=== PATIENT | male | born 1980 | race Caucasian/White ===

== ENCOUNTER 2019-03-25 13:40 | Inpatient (IN) | payer BC ==
[2019-03-25 14:16] LABS: Basophils # (A) 0.1 k/uL (0-0.2); Basophils % (A) 1 %; Eosinophils # (A) 0.2 k/uL (0-0.7); Eosinophils % (A) 1 %; HCT 47.2 % (39.0-53.0); HGB 16.5 gm/dL (13.0-17.5); Lymphocytes # (A) 1.7 k/uL (1.0-4.8); Lymphocytes % (A) 9 %; MCH 31.1 pg (25.0-35.0); MCHC 34.9 g/dL (31.0-37.0); MCV 89.2 fL (80.0-100.0); Monocytes # (A) 0.6 k/uL (0-1.0); Monocytes % (A) 3 %; Neutrophils # (A) 16.3 k/uL (1.3-7.7); Neutrophils % (A) 85 %; Platelet Count 240 k/uL (150-450); RBC 5.29 m/uL (4.30-5.90); RDW 13.9 % (11.5-15.5); WBC 19.2 k/uL (3.8-10.6)
[2019-03-25 14:23] LABS: Partial Thromboplastin Time 26.3 sec (22.0-30.0); Prothrombin Time 10.9 sec (9.0-12.0)
[2019-03-25 14:24] LABS: ALT 42 U/L (21-72); AST 24 U/L (17-59); African American GFR (CKD) >90 (>60 ml/min/1.73 sqM); Albumin 4.6 g/dL (3.5-5.0); Alkaline Phosphatase 68 U/L (38-126); Anion Gap 14 mmol/L; Blood Urea Nitrogen 15 mg/dL (9-20); Calcium 9.8 mg/dL (8.4-10.2); Carbon Dioxide 21 mmol/L (22-30); Chloride 105 mmol/L (98-107); Glucose 116 mg/dL (74-99); Potassium 4.1 mmol/L (3.5-5.1); Sodium 140 mmol/L (137-145); Total Protein 8.4 g/dL (6.3-8.2)
[2019-03-25] MEDS ORDERED: SODIUM CHLORIDE 0.9% 1,000 ML IV STA (14:27)
--- NOTE | 2019-03-25 14:34 | ED ---
General Adult HPI - General Chief complaint: Abdominal Pain Stated complaint: Abd Pain Time Seen by Provider: 03/25/19 14:00 Source: patient Mode of arrival: ambulatory Limitations: no limitations - History of Present Illness Initial comments: Dictation was produced using [employer] dictation software. please excuse any grammatical, word or spelling errors. Chief Complaint: 38-year-old male presents with abdominal pain since yesterday. History of Present Illness: 38-year-old male presents today with abdominal pain. Patient states his symptoms have been worsening since yesterday and however since coming to the emergency department his symptoms have abated slightly. Patient state he had a similar episode like this several months ago however has not had it evaluated by a medical personnel. Patient states he has fever and chills. Hasn't had a bowel movement since yesterday. She does complain some mild nausea. He localizes his pain to his left lower quadrant radiates diffusely to his abdomen. No radiation to the back. Patient has no history of diverticulitis. The ROS documented in this emergency department record has been reviewed and confirmed by me. Those systems with pertinent positive or negative responses have been documented in the HPI. All other systems are other negative and/or noncontributory. PHYSICAL EXAM: General Impression: Alert and oriented x3, not in acute distress HEENT: Normocephalic atraumatic, extra-ocular movements intact, pupils equal and reactive to light bilaterally, mucous membranes moist. Cardiovascular: Heart regular rate and rhythm, S1&S2 audible, no murmurs, rubs or gallops Chest: Lungs clear to auscultation bilaterally, no rhonchi, no wheeze, no rales Abdomen: Diffuse abdominal tenderness, worse in the left lower quadrant Musculoskeletal: Pulses present and equal in all extremities, no peripheral edema Motor: no focal deficits noted Neurological: CN II-XII grossly intact, no focal motor or sensory deficits noted Skin: Intact with no visualized rashes Psych: Normal affect and mood ED course: 38-year-old male with chief complaint of abdominal pain. Vital signs upon arrival are within acceptable limits. Abdomen evaluation obtained. Patient is lucid is 19.2, coag panel unremarkable. Metabolic panel is grossly unremarkable. Computed tomography scan of the abdomen pelvis was obtained showing findings of diverticulitis with scattered pneumoperitoneum. Received call from radiology discussing aneurysm cells. Patient clinical case was discussed with Dr. Dwyer who is willing to accept patients care. Patient started on Zosyn. Reason for operative intervention at this time. - Related Data Home Medications Medication Instructions Recorded Confirmed No Known Home Medications 03/25/19 03/25/19 Allergies Allergy/AdvReac Type Severity Reaction Status Date / Time No Known Allergies Allergy Verified 03/25/19 14:19 Review of Systems ROS Statement: Those systems with pertinent positive or pertinent negative responses have been documented in the HPI. ROS Other: All systems not noted in ROS Statement are negative. Past Medical History Past Medical History: No Reported History History of Any Multi-Drug Resistant Organisms: None Reported Past Surgical History: No Surgical Hx Reported Past Psychological History: Depression Smoking Status: Current every day smoker Past Alcohol Use History: None Reported Past Drug Use History: Marijuana General Exam Limitations: no limitations Course Vital Signs 03/25/19 13:48 Temperature 98.7 F Pulse Rate 93 Respiratory 24 Rate Blood Pressure 148/94 O2 Sat by Pulse 98 Oximetry Medical Decision Making - Lab Data Result diagrams: 03/25/19 14:06 03/25/19 14:06 Lab Results 03/25/19 03/25/19 03/25/19 Range/Units 14:06 14:06 14:06 WBC 19.2 H (3.8-10.6) k/uL RBC 5.29 (4.30-5.90) m/uL Hgb 16.5 (13.0-17.5) gm/dL Hct 47.2 (39.0-53.0) % MCV 89.2 (80.0-100.0) fL MCH 31.1 (25.0-35.0) pg MCHC 34.9 (31.0-37.0) g/dL RDW 13.9 (11.5-15.5) % Plt Count 240 (150-450) k/uL Neutrophils % 85 % Lymphocytes % 9 % Monocytes % 3 % Eosinophils % 1 % Basophils % 1 % Neutrophils # 16.3 H (1.3-7.7) k/uL Lymphocytes # 1.7 (1.0-4.8) k/uL Monocytes # 0.6 (0-1.0) k/uL Eosinophils # 0.2 (0-0.7) k/uL Basophils # 0.1 (0-0.2) k/uL PT 10.9 (9.0-12.0) sec INR 1.0 (<1.2) APTT 26.3 (22.0-30.0) sec Sodium 140 (137-145) mmol/L Potassium 4.1 (3.5-5.1) mmol/L Chloride 105 (98-107) mmol/L Carbon Dioxide 21 L (22-30) mmol/L Anion Gap 14 mmol/L BUN 15 (9-20) mg/dL Creatinine 0.91 (0.66-1.25) mg/dL Est GFR (CKD-EPI)AfAm >90 (>60 ml/min/1.73 sqM) Est GFR (CKD-EPI)NonAf >90 (>60 ml/min/1.73 sqM) Glucose 116 H (74-99) mg/dL Calcium 9.8 (8.4-10.2) mg/dL Total Bilirubin 2.0 H (0.2-1.3) mg/dL AST 24 (17-59) U/L ALT 42 (21-72) U/L Alkaline Phosphatase 68 (38-126) U/L Total Protein 8.4 H (6.3-8.2) g/dL Albumin 4.6 (3.5-5.0) g/dL Lipase 73 (23-300) U/L Disposition Clinical Impression: Diverticulitis Disposition: ADMITTED IP TO THIS [facility] Condition: Fair Referrals: None,Stated [Primary Care Provider] - 1-2 days Decision Time: 15:14
[2019-03-25] MEDS ORDERED: PIPERACILLIN-TAZOBACTAM 3.375 GM in SODIUM CHLORIDE 0.9% 100 ML IVPB STA (15:05)
--- NOTE | 2019-03-25 15:10 | CT ---
EXAMINATION TYPE: CT abdomen pelvis w con DATE OF EXAM: 03/25/2019 COMPARISON: None INDICATION: Pelvic pain with nausea and vomiting. DLP: 2322 mGycm, Automated exposure control for dose reduction was used. CONTRAST: 100 mL of Isovue 300. Study performed without Oral Contrast TECHNIQUE: Axial images were obtained from above the diaphragm to the pubic rami in the axial plane a t 5 mm thick sections. Reconstructed images are reviewed on the computer in the coronal plane. FINDINGS: Small amount of free air is present scattered within the mesentery. This is greatest in the epigastric region. Limited CT sections are obtained the lung bases. The lung bases are clear. CT ABDOMEN: Liver: Normal Spleen: Normal Pancreas: Normal Adrenal glands: The adrenal glands are normal. Gallbladder: Normal Kidneys: No masses are evident. No hydronephrosis is present. No cysts are present. Delayed images were obtained through the kidneys, which remain unremarkable. Aorta: Vascular calcification is within the aorta. Inferior vena cava: Normal. CT PELVIS: There is thickening of the descending colon sigmoid colon junction. Inflammatory changes are adjacent . There are scattered diverticuli within the descending colon and sigmoid colon. Findings are compati ble with acute diverticulitis. No abscess formation is evident. Note is made of additional scattered diverticuli within the ascending colon region. Appendix: Normal as visualized. Urinary bladder: Normal. Genitourinary structures: Prostate appears normal Osseous structures: No suspicious lytic or sclerotic lesions. IMPRESSIONS: 1. Acute diverticulitis descending colon sigmoid colon junction. 2. Pneumoperitoneum with scattered small amounts of air discussed above. 3. Report was called to Dr. Fontanez by Dr. Verma by telephone at the time of interpretation [phone] ho urs 03/25/2019.
[2019-03-25] MEDS ORDERED: NALOXONE 0.4 MG/ML 1 ML VIAL IV PRN (15:12)
[2019-03-25] MEDS ORDERED: MORPHINE SULFATE 4 MG/ML SYRINGE IV PRN (15:12)
--- NOTE | 2019-03-25 15:37 | P.GSHP ---
History of Present Illness H&P Date: 03/25/19 CHIEF COMPLAINT: Diverticulitis HISTORY OF PRESENT ILLNESS: The patient is a 38 year old male who comes in with less than 24-hour history of left lower quadrant abdominal pain. Reports prior attacks several times this year however today being the worst pain. No prior reports of diarrhea and constipation. His bowels are regular. No prior colonoscopies. Reports eating popcorn including sunflower seeds. He does report a family history of diverticulitis in his grandmother. No reports of blood in stools however. No fevers or chills. Computed of the abdomen and pelvis demonstrates diverticulitis PAST MEDICAL HISTORY: See list. PAST SURGICAL HISTORY: See list. MEDICATIONS: See list. ALLERGIES: See list. SOCIAL HISTORY: See list. REVIEW OF ORGAN SYSTEMS: CONSTITUTIONAL: No fevers or chills. No recent weight loss. EYES: Denies any trouble with vision. No glasses. HEENT: No difficulties with hearing. No nosebleeds. No difficulty swallowing. RESPIRATORY: Denies pneumonia. Denies any troubles with breathing or dyspnea on exertion. CARDIOVASCULAR: Denies any chest pain, palpitations, or recent heart attacks. GASTROINTESTINAL: Denies fatty food intolerance. Denies change in bowel habits. Has occasional gas bloat GENITOURINARY: Denies any blood in urine or increased urinary frequency. NEUROLOGICAL: Denies any numbness or tingling along the distal extremities. No seizure disorders or headaches. MUSCULOSKELETAL: occasional back pain, stiffness or joint arthritis. SKIN: No current skin cancer. No rash. PSYCHIATRIC: Denies current depression or suicidal thoughts. ENDOCRINE: Denies current thyroid disorders. Denies any blood sugar glucose intolerance. HEME/LYMPHATIC: Denies any lumps and bumps around the neck. No recent deep venous thrombosis. ALLERGY/IMMUNOLOGY: No immunoglobulin therapy. No immune deficiencies. BREAST: Denies current breast lumps, pain or nipple discharge. PHYSICAL EXAM: VITALS: Reviewed CONSTITUTIONAL: Well developed and in no acute distress. EYES: Conjuctivae without sclera icterus. Pupils are equally round and reactive to light. Extraocular movements grossly intact. HEAD, EARS, NOSE, THROAT: Moist buccal mucosa. Head is atraumatic, normocephalic. Hears conversational speech. No nasal drainage. Good dentition. NECK: Supple. No JV distention. No thyroidomegaly. RESPIRATORY: Non-labored respirations and equal bilateral excursions. No gross wheezes. CARDIOVASCULAR: Regular rate and rhythm. Extremities without moderate edema. Palpable 2+ radial pulses. ABDOMEN: Soft. no peritonitis on exam. Mild left lower quadrant tenderness. LYMPH: No neck lymphadenopathy. No axillary lymphadenopathy. MUSCULOSKELETAL: Nail and fingers with good capillary refill. SKIN: Warm and well perfused with good skin turgor. NEUROLOGIC: Cranial nerves I through XII grossly intact. Sensation upper and extremities intact. No focal or lateralizing signs. PSYCH: Appropriate affect. Alert and oriented to person, place and time. Displays appropriate insight. CLINCAL LABS: Reviewed. WBC over 19,000. Total Bilirubin Elevated at 2.0 IMAGING: Independently reviewed with localized perforation left lower quadrant. No large pneumoperitoneum identified. No small bowel obstruction identified. ASSESSMENT: 1. Localized perforated sigmoid diverticulitis PLAN: 1. IV antibiotics for localized perforated diverticulitis 2. May have ice chips and popsicles. 3. Inpatient hospitalization over 2 nights 4. DVT prophylaxis 5. Incentive spirometer 6. Ambulation 4 times a day Past Medical History Past Medical History: No Reported History History of Any Multi-Drug Resistant Organisms: None Reported Past Surgical History: No Surgical Hx Reported Past Psychological History: Depression Smoking Status: Current every day smoker Past Alcohol Use History: None Reported Past Drug Use History: Marijuana Medications and Allergies Home Medications Medication Instructions Recorded Confirmed Type No Known Home Medications 03/25/19 03/25/19 History Allergies Allergy/AdvReac Type Severity Reaction Status Date / Time No Known Allergies Allergy Verified 03/25/19 14:19 Surgical - Exam Vital Signs Temp Pulse Resp BP Pulse Ox 98.7 F 93 24 148/94 98 03/25/19 13:48 03/25/19 13:48 03/25/19 13:48 03/25/19 13:48 03/25/19 13:48 Results - Labs 03/25/19 14:06 03/25/19 14:06 Abnormal Lab Results - Last 24 Hours (Table) 03/25/19 03/25/19 Range/Units 14:06 14:06 WBC 19.2 H (3.8-10.6) k/uL Neutrophils # 16.3 H (1.3-7.7) k/uL Carbon Dioxide 21 L (22-30) mmol/L Glucose 116 H (74-99) mg/dL Total Bilirubin 2.0 H (0.2-1.3) mg/dL Total Protein 8.4 H (6.3-8.2) g/dL Diabetes panel 03/25/19 Range/Units 14:06 Sodium 140 (137-145) mmol/L Potassium 4.1 (3.5-5.1) mmol/L Chloride 105 (98-107) mmol/L Carbon Dioxide 21 L (22-30) mmol/L BUN 15 (9-20) mg/dL Creatinine 0.91 (0.66-1.25) mg/dL Glucose 116 H (74-99) mg/dL Calcium 9.8 (8.4-10.2) mg/dL AST 24 (17-59) U/L ALT 42 (21-72) U/L Alkaline Phosphatase 68 (38-126) U/L Total Protein 8.4 H (6.3-8.2) g/dL Albumin 4.6 (3.5-5.0) g/dL Calcium panel 03/25/19 Range/Units 14:06 Calcium 9.8 (8.4-10.2) mg/dL Albumin 4.6 (3.5-5.0) g/dL Pituitary panel 03/25/19 Range/Units 14:06 Sodium 140 (137-145) mmol/L Potassium 4.1 (3.5-5.1) mmol/L Chloride 105 (98-107) mmol/L Carbon Dioxide 21 L (22-30) mmol/L BUN 15 (9-20) mg/dL Creatinine 0.91 (0.66-1.25) mg/dL Glucose 116 H (74-99) mg/dL Calcium 9.8 (8.4-10.2) mg/dL Adrenal panel 03/25/19 Range/Units 14:06 Sodium 140 (137-145) mmol/L Potassium 4.1 (3.5-5.1) mmol/L Chloride 105 (98-107) mmol/L Carbon Dioxide 21 L (22-30) mmol/L BUN 15 (9-20) mg/dL Creatinine 0.91 (0.66-1.25) mg/dL Glucose 116 H (74-99) mg/dL Calcium 9.8 (8.4-10.2) mg/dL Total Bilirubin 2.0 H (0.2-1.3) mg/dL AST 24 (17-59) U/L ALT 42 (21-72) U/L Alkaline Phosphatase 68 (38-126) U/L Total Protein 8.4 H (6.3-8.2) g/dL Albumin 4.6 (3.5-5.0) g/dL Assessment and Plan (1) Perforation of sigmoid colon due to diverticulitis Current Visit: Yes Status: Acute Code(s): K57.20 - DVTRCLI OF LG INT W PERFORATION AND ABSCESS W/O BLEEDING SNOMED Code(s): 2814223761905583 (2) Obesity (BMI 30.0-34.9) Current Visit: Yes Status: Acute Code(s): E66.9 - OBESITY, UNSPECIFIED SNOMED Code(s): 620908484937159
[2019-03-25] MEDS: ACETAMINOPHEN TAB 325 MG TAB PO PRN (15:46)
[2019-03-25] MEDS: SODIUM CHLORIDE 0.9% 1,000 ML IV SCH ×2 (15:46→23:33)
[2019-03-25] MEDS: D5-0.45% NACL WITH KCL 20MEQ/L 1,000 ML IV SCH ×2 (16:45→23:41)
[2019-03-25 17:02] LABS: Appearance,Urine Clear (Clear); Bilirubin,Urine Negative (Negative); Blood,Urine Trace (Negative); Color,Urine Yellow; Glucose,Urine (UA) Negative (Negative); Ketones,Urine 2+ (Negative); Leukocyte Esterase,Urine Negative (Negative); Mucus,Urine Rare /hpf; Nitrite,Urine Negative (Negative); PH, Urine 7.5 (5.0-8.0); Protein,Urine 1+ (Negative); RBC,Urine 14 /hpf (0-5)
[2019-03-25 17:08] LABS: Specific Gravity,Urine >1.050 (1.001-1.035)
[2019-03-25] MEDS ORDERED: KETOROLAC 30 MG/ML 1 ML VIAL IVP STA (20:57)
[2019-03-25] MEDS: metroNIDAZOLE-NS PMX 500 MG in SALINE 1 100ML.BAG IVPB SCH (21:18)
[2019-03-25] MEDS: ACETAMINOPHEN IV (For NPO) 1,000 MG in EMPTY BAG 1 BAG IVPB SCH (21:51)
[2019-03-25] MEDS: PIPERACILLIN-TAZOBACTAM 3.375 GM in SODIUM CHLORIDE 0.9% 100 ML IVPB SCH (23:32)
[2019-03-26] MEDS: KETOROLAC 30 MG/ML 1 ML VIAL IVP SCH ×4 (03:04→21:59)
[2019-03-26] MEDS: ACETAMINOPHEN IV (For NPO) 1,000 MG in EMPTY BAG 1 BAG IVPB SCH ×3 (03:47→17:21)
[2019-03-26] MEDS: metroNIDAZOLE-NS PMX 500 MG in SALINE 1 100ML.BAG IVPB SCH ×3 (04:43→22:00)
[2019-03-26] MEDS: D5-0.45% NACL WITH KCL 20MEQ/L 1,000 ML IV SCH ×4 (04:45→23:55)
[2019-03-26 07:17] LABS: Basophils % (A) 0 %; Eosinophils # (A) 0.1 k/uL (0-0.7); Eosinophils % (A) 0 %; HCT 46.1 % (39.0-53.0); HGB 15.3 gm/dL (13.0-17.5); Lymphocytes # (A) 1.7 k/uL (1.0-4.8); Lymphocytes % (A) 8 %; MCH 30.6 pg (25.0-35.0); MCHC 33.1 g/dL (31.0-37.0); MCV 92.5 fL (80.0-100.0); Mean Platelet Volume 6.3; Monocytes # (A) 0.6 k/uL (0-1.0); Monocytes % (A) 3 %; Neutrophils # (A) 17.7 k/uL (1.3-7.7); Neutrophils % (A) 87 %; Platelet Count 206 k/uL (150-450); RBC 4.98 m/uL (4.30-5.90); RDW 13.9 % (11.5-15.5); WBC 20.2 k/uL (3.8-10.6)
[2019-03-26] MEDS: PIPERACILLIN-TAZOBACTAM 3.375 GM in SODIUM CHLORIDE 0.9% 100 ML IVPB SCH ×3 (08:57→23:35)
[2019-03-26] MEDS: PANTOPRAZOLE 40 MG/10 ML VIAL IV SCH (08:57)
[2019-03-26] MEDS: ENOXAPARIN 30 MG/0.3 ML SYRINGE SQ SCH (08:57)
[2019-03-26] MEDS: SODIUM CHLORIDE 0.9% 1,000 ML IV SCH ×3 (09:08→23:40)
[2019-03-26 11:10] LABS: ALT 33 U/L (21-72); AST 20 U/L (17-59); African American GFR (CKD) >90 (>60 ml/min/1.73 sqM); Alkaline Phosphatase 63 U/L (38-126); Anion Gap 12 mmol/L; Blood Urea Nitrogen 16 mg/dL (9-20); Calcium 9.1 mg/dL (8.4-10.2); Carbon Dioxide 20 mmol/L (22-30); Chloride 108 mmol/L (98-107); Glucose 119 mg/dL (74-99); Sodium 140 mmol/L (137-145); Total Bilirubin 1.5 mg/dL (0.2-1.3); Total Protein 7.3 g/dL (6.3-8.2)
[2019-03-26] MEDS: ONDANSETRON 4 MG/2 ML VIAL IVP PRN (11:48)
[2019-03-26] MEDS ORDERED: metroNIDAZOLE-NS PMX 500 MG in SALINE 1 100ML.BAG IVPB SCH (12:00)
--- NOTE | 2019-03-26 13:41 | P.PN ---
<Linh Siegel Roman - Last Filed: 03/26/19 13:22> Subjective Progress Note Date: 03/26/19 CHIEF COMPLAINT: Diverticulitis HISTORY OF PRESENT ILLNESS: Patient examined at the bedside this morning with Dr. Swan. Patient continues to complain of abdominal pain this morning but states it is improved from yesterday. Denies nausea or vomiting. WBC 20.2 this morning. Patient febrile overnight with a temp of 102.2. Temp 99.6 this morning. PHYSICAL EXAM: VITAL SIGNS: Currently stable. GENERAL: Well-developed in no acute distress. HEENT: No sclera icterus. Extraocular movements grossly intact. Moist buccal mucosa. Head is atraumatic, normocephalic. Hears conversational speech. No nasal drainage. NECK: Supple without lymphadenopathy. CHEST: Non-labored respirations and equal bilateral excursions. CARDIOVASCULAR: Regular rate with regular rhythm. Palpable 2+ radial pulses. ABDOMEN: Soft. Nondistended. Tenderness upon palpation of left lower quadrant. No peritoneal signs. MUSCULOSKELETAL: No clubbing, cyanosis or edema. NEUROLOGIC: No focal or lateralizing signs. Cranial nerves II through XII grossly intact. PSYCH: Appropriate affect. Alert and oriented to person, place and time. SKIN: Well perfused. Good skin turgor. ASSESSMENT: 1. Localized perforated sigmoid diverticulitis PLAN: 1. NPO except for ice chips and popsicles 2. Continue antibiotics. Monitor WBC. Infectious disease consulted this morning for evaluation 3. Incentive spirometer 4. Activity as tolerated 5. Continue with conservative management at this time Nurse practitioner note has been reviewed by physician. Signing provider agrees with the documented findings, assessment, and plan of care. Objective - Vital Signs Vital signs: Vital Signs Temp 99.6 F 03/26/19 07:00 Pulse 59 L 03/26/19 07:00 Resp 17 03/26/19 07:00 BP 159/94 03/26/19 07:00 Pulse Ox 98 03/26/19 07:00 Intake & Output 03/25/19 03/26/19 03/26/19 18:59 06:59 18:59 Weight 117.934 kg Other: Voiding Method Toilet - Labs CBC & Chem 7: 03/26/19 06:54 03/26/19 06:54 Labs: Abnormal Lab Results - Last 24 Hours (Table) 03/25/19 03/25/19 03/25/19 Range/Units 14:03 14:06 14:06 WBC 19.2 H (3.8-10.6) k/uL Neutrophils # 16.3 H (1.3-7.7) k/uL Chloride (98-107) mmol/L Carbon Dioxide 21 L (22-30) mmol/L Glucose 116 H (74-99) mg/dL Total Bilirubin 2.0 H (0.2-1.3) mg/dL Total Protein 8.4 H (6.3-8.2) g/dL Ur Specific [place] >1.050 H (1.001-1.035) Urine Protein 1+ H (Negative) Urine Ketones 2+ H (Negative) Urine Blood Trace H (Negative) Urine RBC 14 H (0-5) /hpf Urine Mucus Rare H (None) /hpf 03/26/19 03/26/19 Range/Units 06:54 06:54 WBC 20.2 H (3.8-10.6) k/uL Neutrophils # 17.7 H (1.3-7.7) k/uL Chloride 108 H (98-107) mmol/L Carbon Dioxide 20 L (22-30) mmol/L Glucose 119 H (74-99) mg/dL Total Bilirubin 1.5 H (0.2-1.3) mg/dL Total Protein (6.3-8.2) g/dL Ur Specific [place] (1.001-1.035) Urine Protein (Negative) Urine Ketones (Negative) Urine Blood (Negative) Urine RBC (0-5) /hpf Urine Mucus (None) /hpf Assessment and Plan (1) Diverticulitis Current Visit: Yes Status: Acute Code(s): K57.92 - DVTRCLI OF INTEST, PART UNSP, W/O PERF OR ABSCESS W/O BLEED SNOMED Code(s): 496598954 (2) Perforation of sigmoid colon due to diverticulitis Current Visit: Yes Status: Acute Code(s): K57.20 - DVTRCLI OF LG INT W PERFORATION AND ABSCESS W/O BLEEDING SNOMED Code(s): 8272288222019300 <Amber Swan N - Last Filed: 03/26/19 23:43> Subjective Clinically, he reports feeling better. WBC persistently elevated. Recommend IV antibiotics for complicated diverticulitis and infectious disease consultation. Objective - Vital Signs Vital signs: Vital Signs Temp 99.4 F 03/26/19 19:36 Pulse 76 03/26/19 19:36 Resp 18 03/26/19 19:36 BP 122/72 03/26/19 19:36 Pulse Ox 95 03/26/19 19:36 Intake & Output 03/26/19 03/26/19 03/27/19 06:59 18:59 06:59 Intake Total 200 Balance 200 Weight 117.934 kg Intake: Oral 200 Other: Voiding Method Toilet Toilet Toilet # Voids 4 # Bowel Movements 3 - Labs CBC & Chem 7: 03/26/19 06:54 03/26/19 06:54 Labs: Abnormal Lab Results - Last 24 Hours (Table) 03/26/19 03/26/19 Range/Units 06:54 06:54 WBC 20.2 H (3.8-10.6) k/uL Neutrophils # 17.7 H (1.3-7.7) k/uL Chloride 108 H (98-107) mmol/L Carbon Dioxide 20 L (22-30) mmol/L Glucose 119 H (74-99) mg/dL Total Bilirubin 1.5 H (0.2-1.3) mg/dL Assessment and Plan (1) Perforation of sigmoid colon due to diverticulitis Current Visit: Yes Status: Acute Code(s): K57.20 - DVTRCLI OF LG INT W PERFORATION AND ABSCESS W/O BLEEDING SNOMED Code(s): 2554795926693031 (2) Obesity (BMI 30.0-34.9) Current Visit: Yes Status: Acute Code(s): E66.9 - OBESITY, UNSPECIFIED SNOMED Code(s): 126952939722972
[2019-03-26 15:33] VITALS: BMI 33.3
[2019-03-26] MEDS ORDERED: ACETAMINOPHEN IV (For NPO) 1,000 MG in EMPTY BAG 1 BAG IVPB SCH (21:00)
[2019-03-26] MEDS: ACETAMINOPHEN TAB 325 MG TAB PO PRN (22:00)
[2019-03-27] MEDS: KETOROLAC 30 MG/ML 1 ML VIAL IVP SCH ×4 (03:40→20:29)
[2019-03-27] MEDS: metroNIDAZOLE-NS PMX 500 MG in SALINE 1 100ML.BAG IVPB SCH ×4 (03:40→20:30)
[2019-03-27] MEDS: PANTOPRAZOLE 40 MG/10 ML VIAL IV SCH (08:38)
[2019-03-27] MEDS: D5-0.45% NACL WITH KCL 20MEQ/L 1,000 ML IV SCH ×3 (08:39→20:30)
[2019-03-27] MEDS: ENOXAPARIN 30 MG/0.3 ML SYRINGE SQ SCH (08:39)
[2019-03-27] MEDS: PIPERACILLIN-TAZOBACTAM 3.375 GM in SODIUM CHLORIDE 0.9% 100 ML IVPB SCH ×3 (08:40→23:03)
[2019-03-27 09:30] LABS: Basophils # (A) 0.1 k/uL (0-0.2); Basophils % (A) 0 %; Eosinophils # (A) 0.2 k/uL (0-0.7); Eosinophils % (A) 1 %; HCT 44.5 % (39.0-53.0); HGB 14.3 gm/dL (13.0-17.5); Lymphocytes # (A) 1.8 k/uL (1.0-4.8); Lymphocytes % (A) 10 %; MCH 30.1 pg (25.0-35.0); MCHC 32.1 g/dL (31.0-37.0); MCV 93.7 fL (80.0-100.0); Mean Platelet Volume 7.2; Monocytes # (A) 0.7 k/uL (0-1.0); Monocytes % (A) 4 %; Neutrophils # (A) 14.8 k/uL (1.3-7.7); Neutrophils % (A) 84 %; Platelet Count 212 k/uL (150-450); RBC 4.74 m/uL (4.30-5.90); RDW 13.9 % (11.5-15.5); WBC 17.7 k/uL (3.8-10.6)
[2019-03-27] MEDS: ACETAMINOPHEN TAB 325 MG TAB PO PRN (16:18)
--- NOTE | 2019-03-27 20:43 | P.PN ---
Progress Note - Text Progress Note Date: 03/27/19 He has new onset acute pain. He has new fevers. Will repeat CT scan. Possibility of exploratory laparotomy described.
--- NOTE | 2019-03-27 21:31 | CT ---
EXAMINATION TYPE: CT abdomen pelvis w con DATE OF EXAM: 03/27/2019 COMPARISON: 03/17/2019 HISTORY: Abdominal pain. CT DLP: 2576.4 mGycm Automated exposure control for dose reduction was used. TECHNIQUE: Helical acquisition of images was performed from the lung bases through the pelvis. CONTRAST: Performed without Oral Contrast and with IV Contrast, patient injected with 100ml mL of Isovue 300. FINDINGS: Lung bases are clear. There is no pleural effusion. Heart size is normal. There is no pericardial eff usion. Liver spleen stomach pancreas appear normal. Bile ducts are not dilated. Gallbladder appears normal. There is no adrenal mass. Kidneys show satisfactory contrast opacification. There is a 3 mm calculus interpolar left kidney. Ureters are not dilated. There is normal excretion on the delayed images by b oth kidneys. There is no retroperitoneal adenopathy. There is extensive fat stranding in the large bowel mesentery in the lower abdomen. There is wall thi ckening and numerous diverticula of the sigmoid colon. There is small pneumoperitoneum. There is mild amount of free fluid in the pelvis. Fluid is increased compared to recent exam. There i s no inguinal hernia. There are spondylotic changes in the lumbar spine. The appendix appears normal. There are some small bowel fluid levels. IMPRESSION: THERE IS INCREASED FLUID IN THE ABDOMEN COMPARED TO LAST EXAM AND INCREASED LARGE BOWEL MESENTERIC ED OLGA LIDIA CONSISTENT WITH DIVERTICULITIS. SMALL PNEUMOPERITONEUM. PNEUMOPERITONEUM INCREASED SLIGHTLY HOLDEN RED TO LAST EXAM. SMALL BOWEL FLUID LEVELS CONSISTENT WITH MILD ILEUS.
--- NOTE | 2019-03-28 00:04 | P.CONS ---
History of Present Illness - Reason for Consult Consult date: 03/27/19 Diverticulitis and antibiotic recommendation Requesting physician: Amber Swan - Chief Complaint Abdominal pain and fever 1 day - History of Present Illness Patient is a 38-year-old male presenting to the ER on 03/25/2019 with a chief complaints of abdominal pain of one-day duration the patient pain has been mostly in the left lower quadrant area described the pain to be diffuse to show in nature. The testes 7-8 out of 10 and no sniffing and radiation patient did have associated nausea but no vomiting and no diarrhea did have bowel movements the day before his symptoms started the patient previously had similar symptoms however those has resolved spontaneously this time the patient did have persistent symptoms for the patient presented to the ER on her. Initially the patient was referred by subsequently spiked a fever of 102F did be did have elevated white count of 20,000 CT from the abdominal pelvis has been suspicious for sigmoid diverticulitis but no drainable abscess the patient be treated with Zosyn and Flagyl interested was consulted today for further recommendation regarding antibiotic therapy at the time of my evaluation this afternoon the patient has been afebrile the patient abdominal pain has resolved and the patient was insisting on going home the patient she has been started on a clear liquid diet which has been tolerating so far. No nausea no vomiting and no chest pain shortness of breath or cough and no urinary symptoms Review of Systems Positive point has been mentioned in the HPI rest of the systems are negative Past Medical History Past Medical History: No Reported History History of Any Multi-Drug Resistant Organisms: None Reported Past Surgical History: No Surgical Hx Reported Past Anesthesia/Blood Transfusion Reactions: No Reported Reaction Past Psychological History: Depression Smoking Status: Current every day smoker Past Alcohol Use History: Rare Past Drug Use History: Marijuana - Past Family History Father Family Medical History: No Reported History Mother Family Medical History: No Reported History Medications and Allergies Home Medications Medication Instructions Recorded Confirmed Type No Known Home Medications 03/25/19 03/25/19 History Allergies Allergy/AdvReac Type Severity Reaction Status Date / Time No Known Allergies Allergy Verified 03/25/19 14:19 Physical Exam Vitals: Vital Signs Temp Pulse Pulse Resp BP Pulse Ox 03/27/19 07:00 98.4 F 69 16 131/76 96 03/27/19 01:19 99.6 F 76 18 119/78 96 03/26/19 19:36 99.4 F 76 18 122/72 95 03/26/19 17:21 18 03/26/19 16:18 99.1 F 78 18 120/80 96 Intake and Output 03/26/19 03/27/19 03/27/19 22:59 06:59 14:59 Intake Total 200 0 Balance 200 0 Intake: Oral 200 0 Other: Voiding Method Toilet Weight 117.934 kg GENERAL DESCRIPTION: Middle-aged male lying in bed, no distress. No tachypnea or accessory muscle of respiration use. HEENT: Shows Pallor , no scleral icterus. Oral mucous membrane is dry. No pharyngeal erythema or thrush NECK: Trachea central, no thyromegaly. LUNGS: Unlabored breathing. Clear to auscultation anteriorly. No wheeze or crackle. HEART: S1, S2, regular rate and rhythm. No loud murmur ABDOMEN: Soft, mild left lower quadrant tenderness , no guarding or rigidity, no organomegaly EXTREMITIES: No edema of feet. SKIN: No rash, no masses palpable. NEUROLOGICAL: The patient is awake, alert, oriented x3, mood and affect normal. Results CBC & Chem 7: 03/27/19 09:17 03/26/19 06:54 Labs: Abnormal Lab Results - Last 24 Hours (Table) 03/27/19 Range/Units 09:17 WBC 17.7 H (3.8-10.6) k/uL Neutrophils # 14.8 H (1.3-7.7) k/uL Assessment and Plan Assessment: 1-patient presented to the hospital with sepsis in this patient who did have fever and elevated white count with abdominal pain source is acute sigmoid diverticulitis with no evidence of any abscess on initial CT the patient has been treated with IV Zosyn and the beta have clinical improvement however the white count is still elevated patient has been insisting on going home (1) Sepsis Current Visit: Yes Status: Acute Code(s): A41.9 - SEPSIS, UNSPECIFIED ORGANISM SNOMED Code(s): 27684111 (2) Diverticulitis Current Visit: Yes Status: Acute Code(s): K57.92 - DVTRCLI OF INTEST, PART UNSP, W/O PERF OR ABSCESS W/O BLEED SNOMED Code(s): 917549840 Plan: 1-patient has been advised to stay at least one more day in the hospital to make sure his tolerating his clear liquid diet and his white count normalized 2-if the white count persistently elevated repeat CAT scan may be warranted and need for IV antibiotic therapy on discharge this was discussed with INVESTMENT ANALYST for surg ical team as well as with the nurse case manager to check his coverage for home IV antibiotics 3-Zosyn 3.375 g every 8 hours to continue 4-we will check a CBC and CRP level for the morning We will follow on clinical condition and cultures to further adjust medication if needed Thank you for this consultation will follow this patient with you Time with Patient: Greater than 30
[2019-03-28] MEDS: KETOROLAC 30 MG/ML 1 ML VIAL IVP SCH ×4 (03:24→21:48)
[2019-03-28] MEDS: D5-0.45% NACL WITH KCL 20MEQ/L 1,000 ML IV SCH ×3 (03:25→15:35)
[2019-03-28] MEDS: metroNIDAZOLE-NS PMX 500 MG in SALINE 1 100ML.BAG IVPB SCH ×3 (03:25→21:49)
[2019-03-28] MEDS: PIPERACILLIN-TAZOBACTAM 3.375 GM in SODIUM CHLORIDE 0.9% 100 ML IVPB SCH ×2 (07:28→15:35)
[2019-03-28 07:32] LABS: Basophils % (A) 0 %; Eosinophils % (A) 0 %; HCT 40.6 % (39.0-53.0); HGB 13.3 gm/dL (13.0-17.5); Lymphocytes # (A) 1.2 k/uL (1.0-4.8); Lymphocytes % (A) 11 %; MCH 30.4 pg (25.0-35.0); MCHC 32.7 g/dL (31.0-37.0); MCV 92.8 fL (80.0-100.0); Mean Platelet Volume 7.1; Monocytes # (A) 0.5 k/uL (0-1.0); Monocytes % (A) 5 %; Neutrophils # (A) 8.6 k/uL (1.3-7.7); Neutrophils % (A) 82 %; Platelet Count 195 k/uL (150-450); RBC 4.37 m/uL (4.30-5.90); RDW 13.9 % (11.5-15.5); WBC 10.5 k/uL (3.8-10.6)
[2019-03-28 07:51] LABS: African American GFR (CKD) >90 (>60 ml/min/1.73 sqM); Anion Gap 8 mmol/L; Blood Urea Nitrogen 14 mg/dL (9-20); Calcium 8.3 mg/dL (8.4-10.2); Carbon Dioxide 24 mmol/L (22-30); Chloride 108 mmol/L (98-107); Glucose 110 mg/dL (74-99); Potassium 3.8 mmol/L (3.5-5.1); Sodium 140 mmol/L (137-145)
[2019-03-28 09:22] LABS: C Reactive Protein 227.7 mg/L (<10.0)
[2019-03-28] MEDS: ENOXAPARIN 40 MG/0.4 ML SYRINGE SQ SCH (09:43)
[2019-03-28] MEDS: PANTOPRAZOLE 40 MG/10 ML VIAL IV SCH (09:43)
--- NOTE | 2019-03-28 10:38 | P.PN ---
<Linh Siegel A - Last Filed: 03/28/19 10:35> Subjective Progress Note Date: 03/28/19 CHIEF COMPLAINT: Diverticulitis HISTORY OF PRESENT ILLNESS: Patient examined at the bedside this morning with Dr. Swan. Patient developed increased abdominal pain yesterday including pain on the right upper quadrant. Computed tomography scan was obtained revealing increased amount of free air. Patient was also febrile with a temperature of 103.1F. Patient is afebrile this morning. He reports his abdominal pain is improved this morning compared to yesterday. WBC 10.5. PHYSICAL EXAM: VITAL SIGNS: Currently stable. GENERAL: Well-developed in no acute distress. HEENT: No sclera icterus. Extraocular movements grossly intact. Moist buccal mucosa. Head is atraumatic, normocephalic. Hears conversational speech. No nasal drainage. NECK: Supple without lymphadenopathy. CHEST: Non-labored respirations and equal bilateral excursions. CARDIOVASCULAR: Regular rate with regular rhythm. Palpable 2+ radial pulses. ABDOMEN: Soft. Nondistended. Tenderness upon palpation of left lower quadrant. No peritoneal signs. MUSCULOSKELETAL: No clubbing, cyanosis or edema. NEUROLOGIC: No focal or lateralizing signs. Cranial nerves II through XII grossly intact. PSYCH: Appropriate affect. Alert and oriented to person, place and time. SKIN: Well perfused. Good skin turgor. ASSESSMENT: 1. Localized perforated sigmoid diverticulitis PLAN: 1. Downgrade diet to ice chips and popsicles only for next 3 days 2. Continue IV antibiotics 3. Incentive spirometer 4. Activity as tolerated 5. Continue with conservative management. Patient to remain NPO except ice chip/popsicles until Monday per Dr. Swan. If patients condition declines, he is aware he will require surgical intervention including colostomy. Nurse practitioner note has been reviewed by physician. Signing provider agrees with the documented findings, assessment, and plan of care. Objective - Vital Signs Vital signs: Vital Signs Temp 98.2 F 03/28/19 07:00 Pulse 79 03/28/19 07:00 Resp 12 03/28/19 07:00 BP 112/69 03/28/19 07:00 Pulse Ox 97 03/28/19 07:00 Intake & Output 03/27/19 03/28/19 03/28/19 18:59 06:59 18:59 Intake Total 1700 440 Balance 1700 440 Intake: Intake, IV Titration 1100 Amount D5-0.45% NaCl with KCl 900 20Meq/l 1,000 ml @ 150 mls/hr IV .Q6H40M [facility] Rx# :[id number] Piperacillin-Tazobactam 3 100 .375 gm In Sodium Chloride 0.9% 100 ml @ 25 mls/hr IVPB Q8HR [facility] Rx# :[id number] metroNIDAZOLE-NS PMX 500 100 mg In Saline 1 100ml.bag @ 100 mls/hr IVPB Q6H [facility] Rx#:[id number] Oral 600 440 Other: Voiding Method Toilet Toilet # Voids 3 1 # Bowel Movements 1 - Labs CBC & Chem 7: 03/28/19 07:11 03/28/19 07:11 Labs: Abnormal Lab Results - Last 24 Hours (Table) 03/28/19 03/28/19 Range/Units 07:11 07:11 Neutrophils # 8.6 H (1.3-7.7) k/uL Chloride 108 H (98-107) mmol/L Glucose 110 H (74-99) mg/dL Calcium 8.3 L (8.4-10.2) mg/dL C-Reactive Protein 227.7 H (<10.0) mg/L Assessment and Plan (1) Diverticulitis Current Visit: Yes Status: Acute Code(s): K57.92 - DVTRCLI OF INTEST, PART UNSP, W/O PERF OR ABSCESS W/O BLEED SNOMED Code(s): 445761581 (2) Perforation of sigmoid colon due to diverticulitis Current Visit: Yes Status: Acute Code(s): K57.20 - DVTRCLI OF LG INT W PERFORATION AND ABSCESS W/O BLEEDING SNOMED Code(s): 7713138869722287 <Amebr Swan N - Last Filed: 03/29/19 18:03> Subjective At this time, continue IV antibiotics. Diet held as patient reports increased abdominal pain. Objective - Vital Signs Vital signs: Vital Signs Temp 98.8 F 03/29/19 13:58 Pulse 70 03/29/19 13:58 Resp 12 03/29/19 13:58 BP 124/68 03/29/19 13:58 Pulse Ox 95 03/29/19 13:58 Intake & Output 03/28/19 03/29/19 03/29/19 18:59 06:59 18:59 Intake Total 1100 Balance 1100 Weight 117.934 kg Intake: Intake, IV Titration 1100 Amount D5-0.45% NaCl with KCl 900 20Meq/l 1,000 ml @ 150 mls/hr IV .Q6H40M [facility] Rx# :[id number] Piperacillin-Tazobactam 3 100 .375 gm In Sodium Chloride 0.9% 100 ml @ 25 mls/hr IVPB Q8HR [facility] Rx# :[id number] metroNIDAZOLE-NS PMX 500 100 mg In Saline 1 100ml.bag @ 100 mls/hr IVPB Q6H [facility] Rx#:[id number] Other: Voiding Method Toilet Toilet Toilet # Voids 1 2 - Labs CBC & Chem 7: 03/29/19 08:50 03/28/19 07:11 Labs: Abnormal Lab Results - Last 24 Hours (Table) 03/29/19 Range/Units 08:50 RBC 4.08 L (4.30-5.90) m/uL Hgb 12.7 L (13.0-17.5) gm/dL Hct 37.8 L (39.0-53.0) % Neutrophils # 8.1 H (1.3-7.7) k/uL Assessment and Plan (1) Perforation of sigmoid colon due to diverticulitis Current Visit: Yes Status: Acute Code(s): K57.20 - DVTRCLI OF LG INT W PERFORATION AND ABSCESS W/O BLEEDING SNOMED Code(s): 6565651948030103 (2) Obesity (BMI 30.0-34.9) Current Visit: Yes Status: Acute Code(s): E66.9 - OBESITY, UNSPECIFIED SNOMED Code(s): 768841099399109
--- NOTE | 2019-03-28 19:46 | PN ---
PROGRESS NOTE DATE OF SERVICE: 03/28/2019. REASON FOR FOLLOW UP: Diverticulitis complicated with possible abscess. INTERVAL HISTORY: The patient did have a change in her clinical condition last night. The patient did spike a fever in the evening and did have abdominal pain and the patient did have a repeat CT which shows increase in the fluid compared to last exam and mesenteric edema small hemoperitoneum, but no drainable abscess. The patient has been made n.p.o. And as of this morning the patient is feeling better. Abdominal pain is currently controlled. No nausea, vomiting. PHYSICAL EXAMINATION: Blood pressure is 156/77 with a pulse of 77, temperature 98.4. He is 98% on room air. General description is a middle-aged male up in the chair in no distress. Respiratory system: Unlabored breathing. Clear to auscultation anteriorly. Heart S1, S2. Regular rate and rhythm. ABDOMEN: Soft. LABS: Were normal at 10.5. DIAGNOSTIC IMPRESSION AND PLAN: Patient with acute sigmoid diverticulitis with microperforation, but no drainable abscess currently on Zosyn to continue in view of change in his clinical condition. He will benefit from outpatient IV antibiotic therapy that will be arranged for him and monitor his clinical course closely. MMODL / IJN: [id number] /
--- NOTE | 2019-03-28 20:55 | P.PN ---
Progress Note - Text Progress Note Date: 03/28/19 Patient reevaluating this evening. No further reports abdominal pain. Clinically doing much better than yesterday including this morning. Continue antibiotics. Likely discharge after 24 hours being afebrile and pain improved
[2019-03-29] MEDS: metroNIDAZOLE-NS PMX 500 MG in SALINE 1 100ML.BAG IVPB SCH ×5 (00:26→21:45)
[2019-03-29] MEDS: D5-0.45% NACL WITH KCL 20MEQ/L 1,000 ML IV SCH ×4 (00:27→20:06)
[2019-03-29] MEDS: PIPERACILLIN-TAZOBACTAM 3.375 GM in SODIUM CHLORIDE 0.9% 100 ML IVPB SCH ×4 (00:27→23:48)
[2019-03-29] MEDS: KETOROLAC 30 MG/ML 1 ML VIAL IVP SCH ×4 (04:58→20:05)
[2019-03-29] MEDS: ENOXAPARIN 40 MG/0.4 ML SYRINGE SQ SCH (07:56)
[2019-03-29] MEDS: PANTOPRAZOLE 40 MG/10 ML VIAL IV SCH (07:57)
[2019-03-29 09:11] LABS: Basophils % (A) 0 %; Eosinophils # (A) 0.1 k/uL (0-0.7); Eosinophils % (A) 1 %; HCT 37.8 % (39.0-53.0); HGB 12.7 gm/dL (13.0-17.5); Lymphocytes # (A) 1.2 k/uL (1.0-4.8); Lymphocytes % (A) 11 %; MCH 31.2 pg (25.0-35.0); MCHC 33.7 g/dL (31.0-37.0); MCV 92.6 fL (80.0-100.0); Mean Platelet Volume 6.2; Monocytes # (A) 0.5 k/uL (0-1.0); Monocytes % (A) 5 %; Neutrophils # (A) 8.1 k/uL (1.3-7.7); Neutrophils % (A) 80 %; Platelet Count 227 k/uL (150-450); RBC 4.08 m/uL (4.30-5.90); RDW 13.7 % (11.5-15.5); WBC 10.2 k/uL (3.8-10.6)
--- NOTE | 2019-03-29 11:21 | P.PN ---
<Linh Siegel A - Last Filed: 03/29/19 11:15> Subjective Progress Note Date: 03/29/19 CHIEF COMPLAINT: Diverticulitis HISTORY OF PRESENT ILLNESS: Patient examined at the bedside this morning with Dr. Swan. Patient states his abdominal pain has improved. He is feeling well this morning with complaints. Denies nausea or vomiting. WBC 10.2. Vital signs stable. He is afebrile. PHYSICAL EXAM: VITAL SIGNS: Currently stable. GENERAL: Well-developed in no acute distress. HEENT: No sclera icterus. Extraocular movements grossly intact. Moist buccal mucosa. Head is atraumatic, normocephalic. Hears conversational speech. No nasal drainage. NECK: Supple without lymphadenopathy. CHEST: Non-labored respirations and equal bilateral excursions. CARDIOVASCULAR: Regular rate with regular rhythm. Palpable 2+ radial pulses. ABDOMEN: Soft. Nondistended. Nontender. No peritoneal signs. MUSCULOSKELETAL: No clubbing, cyanosis or edema. NEUROLOGIC: No focal or lateralizing signs. Cranial nerves II through XII grossly intact. PSYCH: Appropriate affect. Alert and oriented to person, place and time. SKIN: Well perfused. Good skin turgor. ASSESSMENT: 1. Localized perforated sigmoid diverticulitis PLAN: 1. Continue antibiotics 2. Incentive spirometer 3. Activity as tolerated 4. Will trial clear liquid diet today 5. Anticipate discharge home this evening versus tomorrow. Await final DC antibi otic recommendations from Dr. Mccloud Nurse practitioner note has been reviewed by physician. Signing provider agrees with the documented findings, assessment, and plan of care. Objective - Vital Signs Vital signs: Vital Signs Temp 98.5 F 03/29/19 06:31 Pulse 97 03/29/19 08:00 Resp 12 03/29/19 08:00 BP 142/77 03/29/19 06:31 Pulse Ox 97 03/29/19 06:31 Intake & Output 03/28/19 03/29/19 03/29/19 18:59 06:59 18:59 Intake Total 1100 Balance 1100 Intake: Intake, IV Titration 1100 Amount D5-0.45% NaCl with KCl 900 20Meq/l 1,000 ml @ 150 mls/hr IV .Q6H40M [facility] Rx# :[id number] Piperacillin-Tazobactam 3 100 .375 gm In Sodium Chloride 0.9% 100 ml @ 25 mls/hr IVPB Q8HR [facility] Rx# :[id number] metroNIDAZOLE-NS PMX 500 100 mg In Saline 1 100ml.bag @ 100 mls/hr IVPB Q6H [facility] Rx#:[id number] Other: Voiding Method Toilet Toilet Toilet # Voids 1 - Labs CBC & Chem 7: 03/29/19 08:50 03/28/19 07:11 Labs: Abnormal Lab Results - Last 24 Hours (Table) 03/29/19 Range/Units 08:50 RBC 4.08 L (4.30-5.90) m/uL Hgb 12.7 L (13.0-17.5) gm/dL Hct 37.8 L (39.0-53.0) % Neutrophils # 8.1 H (1.3-7.7) k/uL Assessment and Plan (1) Diverticulitis Current Visit: Yes Status: Acute Code(s): K57.92 - DVTRCLI OF INTEST, PART UNSP, W/O PERF OR ABSCESS W/O BLEED SNOMED Code(s): 043088115 (2) Perforation of sigmoid colon due to diverticulitis Current Visit: Yes Status: Acute Code(s): K57.20 - DVTRCLI OF LG INT W PERFORATION AND ABSCESS W/O BLEEDING SNOMED Code(s): 5040566781156809 <Amber Swan N - Last Filed: 03/29/19 18:04> Subjective Patient was able to tolerate some liquid diet. He does report he is afraid to eat. As a result, we will continue with IV antibiotics. Slow advancement of diet. Continue full inpatient hospitalization for 24-48 hours as diet improves Objective - Vital Signs Vital signs: Vital Signs Temp 98.8 F 03/29/19 13:58 Pulse 70 03/29/19 13:58 Resp 12 03/29/19 13:58 BP 124/68 03/29/19 13:58 Pulse Ox 95 03/29/19 13:58 Intake & Output 03/28/19 03/29/19 03/29/19 18:59 06:59 18:59 Intake Total 1100 Balance 1100 Weight 117.934 kg Intake: Intake, IV Titration 1100 Amount D5-0.45% NaCl with KCl 900 20Meq/l 1,000 ml @ 150 mls/hr IV .Q6H40M [facility] Rx# :[id number] Piperacillin-Tazobactam 3 100 .375 gm In Sodium Chloride 0.9% 100 ml @ 25 mls/hr IVPB Q8HR [facility] Rx# :[id number] metroNIDAZOLE-NS PMX 500 100 mg In Saline 1 100ml.bag @ 100 mls/hr IVPB Q6H [facility] Rx#:[id number] Other: Voiding Method Toilet Toilet Toilet # Voids 1 2 - Labs CBC & Chem 7: 03/29/19 08:50 03/28/19 07:11 Labs: Abnormal Lab Results - Last 24 Hours (Table) 03/29/19 Range/Units 08:50 RBC 4.08 L (4.30-5.90) m/uL Hgb 12.7 L (13.0-17.5) gm/dL Hct 37.8 L (39.0-53.0) % Neutrophils # 8.1 H (1.3-7.7) k/uL Assessment and Plan (1) Perforation of sigmoid colon due to diverticulitis Current Visit: Yes Status: Acute Code(s): K57.20 - DVTRCLI OF LG INT W PERFORATION AND ABSCESS W/O BLEEDING SNOMED Code(s): 3261226885004495 (2) Obesity (BMI 30.0-34.9) Current Visit: Yes Status: Acute Code(s): E66.9 - OBESITY, UNSPECIFIED SNOMED Code(s): 200067725164733
[2019-03-29] MEDS ORDERED: HYDROcodone/APAP 5-325MG 1 EACH TAB PO PRN (17:55)
[2019-03-29] MEDS ORDERED: IBUPROFEN 600 MG TAB PO PRN (17:55)
--- NOTE | 2019-03-29 18:59 | PN ---
PROGRESS NOTE DATE OF SERVICE: 03/29/2019 REASON FOR FOLLOWUP: Ruptured diverticulitis with an abscess. INTERVAL HISTORY: The patient is currently afebrile. The patient is feeling better, breathing comfortably. The patient denies having any chest pain or shortness of breath or cough. His abdominal pain has improved. No nausea, no vomiting and denies having any diarrhea. Currently on a clear liquid diet. PHYSICAL EXAMINATION: Blood pressure 124/68 with a pulse of 70, temperature 98.8. He is 95% on room air. General description is a middle-aged male up in the chair in no distress. RESPIRATORY SYSTEM: Unlabored breathing. Clear to auscultation anteriorly. HEART: S1, S2. Regular rate and rhythm. ABDOMEN: Soft. No tenderness. EXTREMITIES: No edema of the feet. LABS: Hemoglobin is 12.7, white count 10.2, creatinine 0.88. DIAGNOSTIC IMPRESSION AND PLAN: Patient with acute diverticulitis with perforation and small abscess. Patient is currently on Zosyn. In view of extensive infection, the patient will need outpatient IV antibiotic therapy in view of the fact that abscess is not being drained. Will monitor clinical course closely. Antibiotic for discharge will be Invanz 1 gram daily for 2 weeks with weekly monitoring of his CBC, BMP, CRP. discussed in detail with the medical case worker. MMODL / IJN: [id number] /
[2019-03-30] MEDS: D5-0.45% NACL WITH KCL 20MEQ/L 1,000 ML IV SCH ×4 (03:45→22:20)
[2019-03-30] MEDS: metroNIDAZOLE-NS PMX 500 MG in SALINE 1 100ML.BAG IVPB SCH ×4 (03:52→20:55)
[2019-03-30] MEDS: KETOROLAC 30 MG/ML 1 ML VIAL IVP SCH ×2 (03:52→08:56)
[2019-03-30 06:54] LABS: Basophils % (A) 0 %; Eosinophils # (A) 0.2 k/uL (0-0.7); Eosinophils % (A) 3 %; HCT 36.9 % (39.0-53.0); HGB 12.3 gm/dL (13.0-17.5); Lymphocytes # (A) 1.3 k/uL (1.0-4.8); Lymphocytes % (A) 15 %; MCH 30.9 pg (25.0-35.0); MCHC 33.4 g/dL (31.0-37.0); MCV 92.7 fL (80.0-100.0); Mean Platelet Volume 6.8; Monocytes # (A) 0.6 k/uL (0-1.0); Monocytes % (A) 7 %; Neutrophils # (A) 6.2 k/uL (1.3-7.7); Neutrophils % (A) 73 %; Platelet Count 242 k/uL (150-450); RBC 3.98 m/uL (4.30-5.90); RDW 13.8 % (11.5-15.5); WBC 8.6 k/uL (3.8-10.6)
[2019-03-30] MEDS: ENOXAPARIN 40 MG/0.4 ML SYRINGE SQ SCH (08:55)
[2019-03-30] MEDS: PANTOPRAZOLE 40 MG/10 ML VIAL IV SCH (08:55)
[2019-03-30] MEDS: PIPERACILLIN-TAZOBACTAM 3.375 GM in SODIUM CHLORIDE 0.9% 100 ML IVPB SCH ×3 (08:56→22:57)
--- NOTE | 2019-03-30 10:20 | P.PN ---
Subjective Progress Note Date: 03/30/19 Principal diagnosis: Diverticulitis with perforation Patient doing fairly well today. Pain gradually improving he states. He is afebrile. T-max 99.4. White blood cell count normal. Objective - Vital Signs Vital signs: Vital Signs Temp 98.3 F 03/30/19 07:00 Pulse 62 03/30/19 07:00 Resp 16 03/30/19 07:00 BP 138/70 03/30/19 07:00 Pulse Ox 98 03/30/19 07:00 Intake & Output 03/29/19 03/30/19 03/30/19 18:59 06:59 18:59 Intake Total 480 Balance 480 Weight 117.934 kg Intake: Oral 480 Other: Voiding Method Toilet Toilet # Voids 2 - Exam Abdomen: Soft, mild distention, mild left lower quadrant tenderness, no rebound or guarding - Labs CBC & Chem 7: 03/30/19 06:30 03/28/19 07:11 Labs: Abnormal Lab Results - Last 24 Hours (Table) 03/30/19 Range/Units 06:30 RBC 3.98 L (4.30-5.90) m/uL Hgb 12.3 L (13.0-17.5) gm/dL Hct 36.9 L (39.0-53.0) % Assessment and Plan (1) Perforation of sigmoid colon due to diverticulitis Narrative/Plan: Patient doing well at this time. No evidence of peritonitis on exam. Clinically improving. Continue clear liquids today. Advance to full liquid diet tomorrow. Monitor CBC. Continue IV antibiotics. Current Visit: Yes Status: Acute Code(s): K57.20 - DVTRCLI OF LG INT W PERFORATION AND ABSCESS W/O BLEEDING SNOMED Code(s): 8905502928371240
[2019-03-30] MEDS ORDERED: KETOROLAC 30 MG/ML 1 ML VIAL IVP PRN (10:26)
[2019-03-31] MEDS: metroNIDAZOLE-NS PMX 500 MG in SALINE 1 100ML.BAG IVPB SCH ×4 (02:20→23:00)
[2019-03-31] MEDS: D5-0.45% NACL WITH KCL 20MEQ/L 1,000 ML IV SCH ×3 (04:07→19:34)
[2019-03-31 07:12] LABS: Basophils % (A) 0 %; Eosinophils # (A) 0.2 k/uL (0-0.7); Eosinophils % (A) 2 %; HCT 36.6 % (39.0-53.0); HGB 12.3 gm/dL (13.0-17.5); Lymphocytes # (A) 1.1 k/uL (1.0-4.8); Lymphocytes % (A) 13 %; MCHC 33.5 g/dL (31.0-37.0); MCV 92.7 fL (80.0-100.0); Mean Platelet Volume 6.2; Monocytes # (A) 0.5 k/uL (0-1.0); Monocytes % (A) 6 %; Neutrophils # (A) 6.4 k/uL (1.3-7.7); Neutrophils % (A) 75 %; Platelet Count 288 k/uL (150-450); RBC 3.95 m/uL (4.30-5.90); RDW 13.6 % (11.5-15.5); WBC 8.6 k/uL (3.8-10.6)
[2019-03-31] MEDS: ENOXAPARIN 40 MG/0.4 ML SYRINGE SQ SCH (08:43)
[2019-03-31] MEDS: PIPERACILLIN-TAZOBACTAM 3.375 GM in SODIUM CHLORIDE 0.9% 100 ML IVPB SCH ×2 (08:43→15:06)
[2019-03-31] MEDS: PANTOPRAZOLE 40 MG/10 ML VIAL IV SCH (08:43)
[2019-03-31] MEDS: ONDANSETRON 4 MG/2 ML VIAL IVP PRN (08:43)
--- NOTE | 2019-03-31 09:54 | P.PN ---
Subjective Progress Note Date: 03/31/19 Principal diagnosis: Diverticulitis with perforation Patient doing well today. Denies nausea or vomiting. Normal white blood cell count. T-max 99.3. Tolerating full liquids Objective - Vital Signs Vital signs: Vital Signs Temp 98.1 F 03/31/19 07:00 Pulse 63 03/31/19 07:00 Resp 16 03/31/19 07:00 BP 136/79 03/31/19 07:00 Pulse Ox 97 03/31/19 07:00 Intake & Output 03/30/19 03/31/19 03/31/19 19:59 06:59 18:59 Intake Total Balance Intake: Intake, IV Titration Amount D5-0.45% NaCl with KCl 20Meq/l 1,000 ml @ 150 mls/hr IV .Q6H40M [facility] Rx# :[id number] Piperacillin-Tazobactam 3 .375 gm In Sodium Chloride 0.9% 100 ml @ 25 mls/hr IVPB Q8HR [facility] Rx# :[id number] metroNIDAZOLE-NS PMX 500 mg In Saline 1 100ml.bag @ 100 mls/hr IVPB Q6H [facility] Rx#:[id number] Oral Other: Voiding Method # Voids - Exam Abdomen: Soft, nondistended, mild left lower quadrant tenderness - Labs CBC & Chem 7: 03/31/19 06:47 03/28/19 07:11 Labs: Abnormal Lab Results - Last 24 Hours (Table) 03/31/19 Range/Units 06:47 RBC 3.95 L (4.30-5.90) m/uL Hgb 12.3 L (13.0-17.5) gm/dL Hct 36.6 L (39.0-53.0) % Assessment and Plan (1) Perforation of sigmoid colon due to diverticulitis Narrative/Plan: Continue full liquids at this time. Ambulate. Continue antibiotics. Possible discharge tomorrow. Increase diet in a.m. Current Visit: Yes Status: Acute Code(s): K57.20 - DVTRCLI OF LG INT W PER FORATION AND ABSCESS W/O BLEEDING SNOMED Code(s): 7201079523195506
[2019-03-31 20:50] VITALS: RESP 15
--- NOTE | 2019-03-31 23:14 | PN ---
PROGRESS NOTE DATE OF SERVICE: 03/31/2019. REASON FOR FOLLOWUP: Diverticulitis with an abscess. INTERVAL HISTORY: The patient is currently afebrile. The patient has been breathing comfortably. The patient denies having any chest pain. No cough. No nausea, vomiting. His abdominal pain has improved. Denies having any diarrhea. PHYSICAL EXAMINATION: His blood pressure is 149/85 with a pulse of 67, temperature 98.2. He is 98% on room air. General description is a middle-aged male lying in bed in no distress. Respiratory system: Unlabored breathing, clear to auscultation anteriorly. Heart S1, S2. Regular rate and rhythm. ABDOMEN: Soft, no tenderness. Extremities: No edema of the feet. LABS: His white count normal 8.6. CRP is 227. Blood culture has been negative. DIAGNOSTIC IMPRESSION AND PLAN: Patient with acute sigmoid diverticulitis with perforation. The patient is currently on Zosyn to transition him to Invanz 1 g daily. The patient will continue outpatient setting for at least 2 weeks before repeating his CAT scan. Questions and concerns were answered. MMODL / IJN: [id number] /
[2019-04-01] MEDS: PIPERACILLIN-TAZOBACTAM 3.375 GM in SODIUM CHLORIDE 0.9% 100 ML IVPB SCH ×2 (00:03→08:17)
[2019-04-01] MEDS: D5-0.45% NACL WITH KCL 20MEQ/L 1,000 ML IV SCH ×2 (00:06→08:16)
[2019-04-01] MEDS: metroNIDAZOLE-NS PMX 500 MG in SALINE 1 100ML.BAG IVPB SCH ×2 (05:00→12:28)
[2019-04-01 07:43] VITALS: BP 152/92; PULSE 56; TEMP 98.8
[2019-04-01] MEDS: PANTOPRAZOLE 40 MG/10 ML VIAL IV SCH (08:17)
[2019-04-01] MEDS: ENOXAPARIN 40 MG/0.4 ML SYRINGE SQ SCH (08:17)
--- NOTE | 2019-04-01 10:44 | P.DS ---
<Linh Siegel Roman - Last Filed: 04/01/19 10:41> Providers Expected date of discharge: 04/01/19 - Discharge Diagnosis(es) (1) Diverticulitis Status: Acute (2) Perforation of sigmoid colon due to diverticulitis Status: Acute Hospital Course: The patient is a 38 year old male who comes in with less than 24-hour history of left lower quadrant abdominal pain. Reports prior attacks several times this year however today being the worst pain. No prior reports of diarrhea and constipation. His bowels are regular. No prior colonoscopies. Reports eating popcorn including sunflower seeds. He does report a family history of diverticulitis in his grandmother. No reports of blood in stools however. No fevers or chills. Computed of the abdomen and pelvis demonstrates diverticulitis with localized perforation. Patient was treated with conservative management. He received IV antibiotics. He was evaluated by infectious disease during hospitalization. His pain has improved. WBC is within normal limits. Vital signs stable. Afebrile. He is stable for discharge home today with IV antibiotics per Dr. Mccloud recommendations. Please see EMR for further hospital course details. Discharge Diagnosis: 1. Localized perforated sigmoid diverticulitis Nurse practitioner note has been reviewed by physician. Signing provider agrees with the documented findings, assessment, and plan of care. Patient Condition at Discharge: Fair Plan - Discharge Summary Discharge Rx Participant: No New Discharge Prescriptions: New Ertapenem [INVanz] 1 gm IVPB Q24H #14 bag Acetaminophen Tab [Tylenol Tab] 650 mg PO Q4H PRN #30 tablet PRN Reason: Pain Discharge Medication List Ertapenem [INVanz] 1 gm IVPB Q24H #14 bag 03/29/19 [Rx] Acetaminophen Tab [Tylenol Tab] 650 mg PO Q4H PRN #30 tablet 04/01/19 [Rx] Follow up Appointment(s)/Referral(s): Amber Swan MD [STAFF PHYSICIAN] - 04/16/19 9:00 am None,Stated [Primary Care Provider] - 1-2 days Oc Mccloud MD [STAFF PHYSICIAN] - 1 Week (Office will set up follow up appointment, on the first day of IV antibitoic infusion) Ambulatory/Diagnostic Orders: Basic Metabolic Panel [LAB.AMB] Location: None Selected C Reactive Protein [LAB.AMB] Location: None Selected Complete Blood Count w/diff [LAB.AMB] Location: None Selected Patient Instructions/Handouts: Diverticulitis (DC) Activity/Diet/Wound Care/Special Instructions: Please go to 's office tomorrow at 8:45am for first IV antibiotic administration. Call office with any changes, #[phone]. LOW FIBER DIET Discharge Disposition: HOME SELF-CARE <Amber Swan - Last Filed: 04/04/19 17:21> Providers Date of admission: 03/25/19 15:12 Attending physician: Amber Swan Consults: 03/26/19 21:42 Consult Physician Routine Consulting Provider: Oc Mccloud Consult Reason/Comments: Antibiotic management PICC line Do you want consulting provider notified?: Yes, Notify in am Primary care physician: Stated None - Discharge Diagnosis(es) (1) Perforation of sigmoid colon due to diverticulitis Status: Acute (2) Obesity (BMI 30.0-34.9) Status: Acute (3) Fever Status: Acute (4) Leukocytosis Status: Acute (5) Left lower quadrant abdominal pain Status: Acute (6) Receiving intravenous antibiotic treatment as outpatient Status: Acute (7) Sepsis Status: Acute Hospital Course: Patient presents with additional comorbidities including obesity due to excess calories, BMI 33.4. His white blood cell count was elevated including tachycardia and fevers consistent with sepsis. Infectious disease was consulted for management antibiotics including sepsis present on admission
--- NOTE | 2019-04-01 22:45 | PN ---
PROGRESS NOTE DATE OF SERVICE: 04/01/2019 REASON FOR FOLLOW UP: Diverticulitis with abdominal abscess. INTERVAL HISTORY: The patient was seen on rounds this morning where the patient was afebrile, has been breathing comfortably. Denies having any chest pain. No cough. No nausea, vomiting. His abdominal discomfort has improved which he called as muscle cramping, down to about 2/10. No nausea, no vomiting. Has been tolerating a regular diet and no diarrhea. PHYSICAL EXAMINATION: Blood pressure is 152/92 with a pulse of 56, temperature of 98.8. He is 97% on room air. General description is a middle-aged male lying in bed in no distress. Respiratory system: Unlabored breathing, clear to auscultation anteriorly. Heart S1, S2. Regular rate and rhythm. Abdomen soft. LABS: No new labs have been obtained today. DIAGNOSTIC IMPRESSION AND PLAN: Patient with acute complicated sigmoid diverticulitis with abdominal abscess. The patient is currently on Zosyn that has been transitioned to Invanz 1 g daily for a total of 2 weeks with a repeat CT before completing his antibiotic. Weekly monitoring of CBC, BMP and CRP. Continue supportive care. MMODL / IJN: [id number] /
--- NOTE | 2019-04-03 07:30 | CDI ---
Documentation Clarification Form Date: 04/03/19 From: Trisha Abad Phone: If you have a question about this query, please contact Carol Mi Re Examiner at [phone] between 8am and 5pm. Admit Date: 03/25/19 Discharge Date: 04/01/19 Patient Name: Kenrick Doran Visit Number: [id number] ATTENTION: The Clinical Documentation Specialists (CDI) and [facility] Coding Staff appreciate your assistance in clarifying documentation. Please respond to the clarification below the line at the bottom and electronically sign. The CDI & [facility] Coding staff will review the response and follow-up if needed. Please note: Queries are made part of the Legal Health Record. If you have any questions, please contact the author of this message via ITS. Dear Dr. Amber Swan The patient presented with left lower quadrant abdominal pain. Dr. Mccloud documented that the patient presented with sepsis in the consult note. History/Risk Factors: Sigmoid diverticulitis with perforation. Clinical Indicators: Elevated white count WBC: 19.2 Lactic acid: Not tested Blood cultures: Not tested Vitals signs on admission: T. 98.7 on admit then up to 102.2 same day, P. 93, R. 24, BP 148/94 Treatment: Antibiotics: IV Flagyl, IV Zosyn IV Bolus: 1 liter then at 120 mls/hr In your professional opinion, please clarify if these findings signify one of the following conditions, whether the condition is POA, and cause, if known: Condition Sepsis ruled out SIRS, without underlying infectious process Sepsis Severe Sepsis Septic Shock Other, please specify Unable to determine Present on Admission Yes No Please see updated discharge summary reflecting sepsis present on admission 04/04/19 @ 17:28 MTDD
== END 2019-04-01 15:04 | disposition home or self-care (01) | DRG 871 ==
LOC: EC 13:40 → 4SSUR 15:12
PROVIDERS: ADMIT Surgery Plastic and Reconstructive Surgery; ATTEND Surgery Plastic and Reconstructive Surgery
PROC: 05HF33Z Insertion of Infusion Device into Left Cephalic Vein, Percutaneous Approach (ICD-10-PCS; principal; 2019-03-29 14:10)
DX: A41.9 Sepsis, unspecified organism (principal); K66.1 Hemoperitoneum; K57.20 Diverticulitis of large intestine with perforation and abscess without bleeding; E66.9 Obesity, unspecified; F17.200 Nicotine dependence, unspecified, uncomplicated; F32.9 Major depressive disorder, single episode, unspecified; Z68.33 Body mass index [BMI] 33.0-33.9, adult
CPT/HCPCS: 36410; 36415; 74177; 76937; 80048; 80053; 81001; 83690; 85025; 85610; 85730; 86140; 96361; 96365; 99285

== ENCOUNTER → 2019-04-16 | Outpatient (CLI) | payer BC ==
--- NOTE | 2019-04-16 12:18 | CT ---
EXAMINATION TYPE: CT abdomen pelvis w con DATE OF EXAM: 04/16/2019 COMPARISON: 03/27/2019 HISTORY: Follow up to diverticulitis of Lg intestine CT DLP: 1794 mGycm CONTRAST: CT scan of the abdomen and pelvis is performed with Oral Contrast and with IV Contrast, patient injec aly with 100 mL of Isovue 300. FINDINGS: LUNG BASES-: No visible nodule. No infiltrate. LIVER/GB: No calcified gallstones. No space occupying hepatic lesion. Biliary tree is of normal ca liber. PANCREAS: No inflammation. No distinct mass. SPLEEN: No splenic enlargement. No lesion seen. ADRENALS: No nodule. No thickening. KIDNEYS/BLADDER: No hydronephrosis. 3 mm nonobstructing calculus left kidney. No distinct renal mass . Urinary bladder grossly unremarkable. BOWEL: There is much improved but persistent inflammatory change about the sigmoid colon. Extending c audally from the sigmoid colon into the interloop region of the small bowel is a 4.1 x 4.5 cm thick-w alled collection with focus of internal air felt to reflect abscess. No additional collections seen a t this time. No evidence for free air. GENITAL ORGANS: No gross abnormality. LYMPH NODES: No greater than 1cm abdominal or pelvic lymph nodes are appreciated. AORTA: No significant abnormality. OSSEOUS STRUCTURES: No significant abnormality is seen. OTHER: No significant additional abnormality is seen. IMPRESSION: 1. There is much improved but persistent inflammatory change about the sigmoid colon. Extending cauda lly from the sigmoid colon into the interloop region of the small bowel is a 4.1 x 4.5 cm thick-bairon d collection with focus of internal air felt to reflect abscess.
== END | disposition home or self-care (01) ==
LOC: RADCTMAIN 10:00
PROVIDERS: ATTEND Internal Medicine Infectious Disease
DX: K63.89 Other specified diseases of intestine (principal)
CPT/HCPCS: 74177; Q9967 ×2